=== PATIENT | female | born 1950 | race Hispanic/Latino ===

== ENCOUNTER 2017-04-08 11:24 | Day surgery (SDC) | payer MEDICARE ==
[~2017-04-08 11:24] MED LIST: RINGERS SOLUTION,LACTATED 1,000 ML IV PRN; ROPIVACAINE HCL/PF 40 MG in NORMAL SALINE 16 ML IJ PRN; ceFAZolin SODIUM 1 GM VIAL IV PRN
--- OUTSIDE RECORDS SUMMARY | 2017-04-08 11:28 | XMS REPORT | Continuity of Care Document ---
:1950 Author Organization [facility] ([facility]) Address [address] [place] [address] Phone [phone] Care Team Providers Name Role Phone Unavailable Primary Care Provider Unavailable Source Comments This disclosure is being made pursuant to the Care Everywhere program, applicable federal and state laws, and may not contain all informaitonavailable regarding this patient.[facility] ([facility]) Active Allergies and Adverse Reactions Not on File Current Medications Not on file Active Problems Not on file Social History Tobacco Use Types Packs/Day Years Used Date Never Assessed Plan of Care Health Maintenance Due Date Last Done Comments HCV Screening 1950 Hepatitis B Vaccine (1 of 3 - Primary Series) 1950 Tdap Vaccine 1962 Lipid Disorder Screening 1969 Td Vaccine 1969 Cervical Cancer Screening 1981 Mammogram 1991 Colonoscopy 10/27/2001 Zoster Vaccine 2011 Influenza Vaccine: Seasonal (#1) 06/04/2016 Osteoporosis Screening (DXA Bone Density) 2016 Pneumococcal Vaccine (1 of 2 - PCV13) 2016 Results from Last 3 Months Not on file
[2017-04-08] MEDS ORDERED: BUPIVACAINE HCL/EPINEPHRINE 10 ML VIAL IJ ONE (13:40)
--- NOTE | 2017-04-08 14:24 | OR ---
Operative Report - Dictated Report Narrative: Date: 04/08/2017 Physician: Edson Garcia M.D. Clinical Unit Coordinator: José Antonio Dumont PA-C Preoperative diagnosis: Right Knee medial meniscus tear, Rajput's cyst Postoperative diagnosis: Right Knee medial meniscus tear , Rajput's cyst, chondromalacia medial femoral condyle, anterior medial plica Procedure: Right knee arthroscopy with partial medial meniscectomy, chondroplasty medial femoral condyle, excision of anterior medial plica, aspiration of Rajput cyst Anesthesia: MAC Plus local Complications: None Estimated blood loss: Minimal Tourniquet time: None Specimens: None Retained implants: None Drains: None Indications: Mrs. Roa Is a 66 year-old female who has been followed in my clinic with complaints of knee pain consistent with suspected medial joint as well as Rajput' s cyst pathology. Physical exam and diagnostic imaging were consistent with these complaints and concern for Rajput cyst and medial meniscus pathology. Conservative measures have failed including, but not limited to, passage of time , activity modification, medications, and injections. The risks, benefits, and alternatives were discussed in clinic. The risks being , bleeding, infection, blood clots, nerve, tendon, ligament, blood vessel injury, persistent pain, arthrosis, need for additional procedures, and persistent symptoms. Consent was obtained in the clinic. Procedure: After marking the correct extremity in the preoperative holding area, a timeout was performed in the operating room. IV antibiotics consisting of Ancef were administered prior to the procedure. A well-padded tourniquet was applied to the operative upper thigh. The leg was prepped and draped in a standard sterile fashion. 0.5% Marcaine with epinephrine was infused into the projected portal sites as well as the intra-articular space. A raymundo incision was made for inferior lateral portal. A blunt trocar and cannula was introduced into the knee. The suprapatellar pouch revealed no pathology. The medial patella facet showed grade 2 change. The lateral patella facet showed grade 1 change. The trochlea showed grade 1 change. The medial gutter revealed a large abrading anterior medial plica. The medial joint space was then entered utilizing a lateral post and valgus stress. A spinal needle was utilized for guidance into placement of an anterior medial portal. This was placed just superior to the medial meniscus ensuring that we could reach the posterior aspect of the medial joint space. A raymundo incision was made in the site, and the probe was introduced to the knee. The medial joint space was examined, and the medial femoral condyle showed grade 3 change with a loose chondral edge. The medial tibial plateau showed grade 2 change. The medial meniscus had a complex tear of the posterior one half. The notch was then examined, and the ACL was noted to be intact. The PCL was noted to be intact. The lateral joint space was then examined using a varus force in the figure 4 position. Lateral femoral condyle showed no significant arthrosis. Lateral tibial plateau showed no significant arthrosis. The lateral meniscus showed had some calcification but no romeo tear. The lateral gutter showed no pathology. Having identified the surgical pathology, a series of biters and naomi were utilized in order to debride the posterior one half of the medial meniscus down to approximately 50% of its depth. The medial femoral condyle as well as anterior medial plica were also debrided down to stable margins. Once it was felt that we adequately addressed the pathology, the knee was thoroughly irrigated. The fluid was evacuated ensuring that we have removed all meniscal, chondral, and any other loose bodies. A final evaluation of the joint showed no additional pathology. The fluid was then evacuated of the knee, and the trocar and camera were removed from the joint. The wounds were closed with interrupted nylon after placing 20 mL of 0.2% ropivacaine into the joint. The Rajput's cyst was aspirated from a posterior medial aspiration site using a spinal needle. 8 mL of thick strawberry colored fluid was obtained in the overall size of the popliteal cyst was decreased. Dressings consisting of Xeroform, 4 x 4, ABD, soft roll, and an Phoenix were applied. All sponge, needle, blade, and instrument counts were correct prior to closing the wounds. The patient was awoken and transferred to the postanesthesia care unit in stable condition.
[2017-04-08 15:32] VITALS: BP 145/70
== END 2017-04-08 11:25 | disposition home or self-care (01) ==
LOC: AMB 11:24
PROVIDERS: ATTEND Orthopaedic Surgery
PROC: 0Y9F3ZX Drainage of Right Knee Region, Percutaneous Approach, Diagnostic (ICD-10-PCS; 2017-04-08)
PROC: 0SBC4ZZ Excision of Right Knee Joint, Percutaneous Endoscopic Approach (ICD-10-PCS; principal; 2017-04-08 15:00)
DX: M23.203 Derangement of unspecified medial meniscus due to old tear or injury, right knee (principal); M94.261 Chondromalacia, right knee; M71.21 Synovial cyst of popliteal space [Baker], right knee; I10 Essential (primary) hypertension; E78.5 Hyperlipidemia, unspecified; K21.9 Gastro-esophageal reflux disease without esophagitis; Z68.26 Body mass index [BMI] 26.0-26.9, adult

== ENCOUNTER 2017-09-27 08:59 | Inpatient (IN) | payer MEDICARE ==
[2017-09-27] MEDS ORDERED: ONDANSETRON HCL/PF 2 MG/ML VIAL IV PRN (09:15)
[2017-09-27] MEDS ORDERED: KETOROLAC TROMETHAMINE 30 MG/ML VIAL IV PRN (09:16)
[2017-09-27] MEDS ORDERED: ACETAMINOPHEN 500 MG TABLET PO PRN (09:17)
[2017-09-27 09:35] LABS: Hematocrit 41.6 % (37.0-47.0); Hemoglobin 14.7 gm/dL (12.5-16.0); Mean Cell Volume 85.8 fl (78-100); Mean Corpuscular Hemoglobin 30.3 pg (27-31); Mean Corpuscular Hgb Conc 35.3 g/dl (32-36); Mean Platelet Volume 9.1 fl (6.0-9.5); Neutrophil # 8.7 K/mm3 (1.3-6.0); Neutrophil % 83.9 % (42-75.0); Platelet Count 289 K/mm3 (150-450); Red Blood Count 4.85 M/mm3 (4.2-5.4); Red Cell Distribution Width 11.8 % (11.5-14.0); White Blood Count 10.4 K/mm3 (4.0-10.5)
[2017-09-27 11:09] LABS: Albumin * 3.3 gm/dl (3.4-5.0); Anion Gap 14.3 mmol/L (6.8-13.8); BUN/Creatinine Ratio 11.4 (9.0-21.6); Bilirubin, Total 0.4 mg/dL (0.0-1.1); CRP 7.3 mg/dL (0.0-0.9); Ca. Corrected For Albumin 9.8 mg/dL (8.4-10.2); Calcium * 9.6 mg/dL (7.9-10.9); Carbon Dioxide 24.1 mmol/L (24-32.6); Potassium 3.4 mmol/L (3.4-4.6); Total Protein 7.7 gm/dL (6.2-8.2)
[2017-09-27] MEDS: PIPERACILLIN SODIUM/TAZOBACTAM 3.375 GM in DEXTROSE 5 % IN WATER 100 ML IV SCH ×4 (11:20→19:13)
[2017-09-27] MEDS: SACCHAROMYCES BOULARDII 250 MG CAPSULE PO SCH ×2 (11:21→20:31)
[2017-09-27] MEDS ORDERED: FLU VACC QS2017-18(6MOS UP)/PF 60 MCG/0.5 ML SYRINGE IM ONE (12:00)
--- NOTE | 2017-09-27 14:37 | HP ---
Chief Complaint - Chief Complaint Date of Service: 09/27/17 Time of Service: 09:00 Chief Complaint: Abdominal Pain History of Present Illness: Jeni is a 66 yo female with active diverticulitis that followed up to clinic today. She was diagnosed with diverticulitis and possible colovaginal fistula by CT 4 days ago. She was started on flagyl/cipro and set up with outpatient follow up with me and also with surgery in regards to the possible fistula. She was contacted two days later and reported feeling better, however on the third day she began feeling worse and today reports is the worst that she has felt. She has not been eating and reports feeling fevered. Max temp at home was 99.4. She continues to have lower left quadrant abdominal pain. She has been taking all antibiotics as prescribed. - Patient's Past Medical History Patient History - Medical: Anxiety, Depression, Fibromyalgia, GERD, Seizures, Other Patient History - Cardiac/Respiratory: Hypertension, Hyperlipidemia, Pneumonia Patient History - Cancer: No Hx of Cancer Patient History - Surgical Procedures: Cholecystectomy, Colonoscopy, D & C, Hysterectomy, Tubal Ligation Patient History - Other: None LMP (females 10-50): Menopausal - Family History Mother Family History - Medical: No pertinent hx, Other Family History - Cardiac/Respiratory: Coronary Heart Disease, Hypertension, Hyperlipidemia, Other Family History - Cancer: No pertinent family hx Father Family History - Medical: Arthritis, Glaucoma Family History - Cardiac/Respiratory: No pertinent hx Family History - Cancer: Prostate - Social History Living Situations: spouse Abuse History: No History of abuse Psych History: Hx of Anxiety, Hx of Depression Smoking Status: Never smoker Have you smoked in the past 12 months: No Do you dip or chew tobacco: No Patient requests Smoking Cessation Consult: No Initiate information on Smoking Cessation: No Alcohol Use: none Drug Use: none - Immunizations Immunizations Up to Date: Yes Hx Pneumococcal Vaccination: No History of Influenza Vaccine: No Review Of Systems (GEN) - Review of Systems Generalized/Overall Review: Present: Weakness, Chills, Diaphoresis EENTM: Present: No Symptoms Reported Respiratory: Present: No Symptoms Reported Cardiac: Present: No Symptoms Reported Abdominal: Present: Nausea, Abdominal Pain Genitourinary: Present: Other - ayala vaginal discharge Musculoskeletal: Present: No Symptoms Reported Neurological: Present: No Symptoms Reported Skin: Present: No Symptoms Reported Endocrine: Present: No Symptoms Reported Immunizations: IMMUNIZATION HX Immunizations Up to Date Yes History of Influenza Vaccine No Hx Pneumococcal Vaccination No Allergies/Adverse Reactions: Allergies Allergy/AdvReac Type Severity Reaction Status Date / Time Iodinated Contrast- Oral and Allergy Mild Hives Verified 09/27/17 09:57 IV Dye [Iodinated Contrast Media - IV Dye] fexofenadine HCl AdvReac Intermediate SUICIDAL Verified 09/27/17 09:57 [From Grace] THOUGHTS duloxetine HCl AdvReac Mild EYE SIGHT Verified 09/27/17 09:57 [From Cymbalta] GOES BAD metoclopramide HCl AdvReac Mild GI UPSET Verified 09/27/17 09:57 [From Reglan] NSAIDS (Non-Steroidal AdvReac Mild GI UPSET Verified 09/27/17 09:57 Anti-Inflamma pregabalin [From Lyrica] AdvReac Mild BODY ACHES Verified 09/27/17 09:57 promethazine HCl AdvReac Mild GI UPSET Verified 09/27/17 09:57 [From Phenergan] Home Medications: HOME MEDICATIONS Omeprazole Magnesium [Prilosec Otc] 20 mg PO DAILY 01/09/16 [Last Taken 06:00] Acetaminophen [Tylenol] 325 - 650 mg PO Q4H PRN 03/15/17 [Last Taken Unknown] Ibuprofen [Motrin] 400 mg PO Q6H PRN 03/15/17 [Last Taken Unknown] Ciprofloxacin HCl 500 mg PO BID 09/27/17 [Last Taken 09/27/17 06:00] metroNIDAZOLE [Flagyl] 500 mg PO TID 09/27/17 [Last Taken 09/27/17 06:00] Exam - Exam Vital Signs: Vital Signs - Last Taken Temp 37.1 C 09/27/17 09:04 Pulse 96 09/27/17 09:04 Resp 16 09/27/17 09:04 BP 118/71 09/27/17 09:04 Pulse Ox 96 09/27/17 09:04 Constitutional: Present: Alert, Oriented x3, Cooperative ENT Exam: Present: hearing grossly normal Eye Exam: bilateral eye: normal inspection Respiratory: Present: lungs clear, normal breath sounds Cardiovascular/Chest: Present: regular rate, rhythm, no murmur Abdomen: Present: Normal bowel sounds, soft, nondistended, tender - LLQ Extremity: Present: normal inspection Skin Exam: Present: normal color, warm/dry, no cyanosis Neurologic: Present: normal mood/affect, oriented x 3 Appearance: Present: appropriate appearance, appropriate insight Eye contact: Present: cooperative, good eye contact, normal speech Thoughts: Present: normal thought pattern, no apparent hallucination Diagnostic Studies: Abnormal Lab Results 09/27/17 09/27/17 09/27/17 Range/Units 09:30 09:30 09:30 Neutrophils % 83.9 H (42-75.0) % Lymphocytes % 8.4 L (20-51) % Neutrophils # 8.7 H (1.3-6.0) K/mm3 Lymphocytes # 0.9 L (1.5-3.5) k/mm3 ESR 41 H (0-15) mm/hr Anion Gap 14.3 H (6.8-13.8) mmol/L Random Glucose 118 H (70-110) mg/dL C-Reactive Prot, Quant 7.3 H (0.0-0.9) mg/dL Albumin 3.3 L (3.4-5.0) gm/dl Laboratory Results WBC 10.4 K/mm3 (4.0-10.5) 09/27/17 09:30 RBC 4.85 M/mm3 (4.2-5.4) 09/27/17 09:30 Hgb 14.7 gm/dL (12.5-16.0) 09/27/17 09:30 Hct 41.6 % (37.0-47.0) 09/27/17 09:30 MCV 85.8 fl (78-100) 09/27/17 09:30 MCH 30.3 pg (27-31) 09/27/17 09:30 MCHC 35.3 g/dl (32-36) 09/27/17 09:30 RDW 11.8 % (11.5-14.0) 09/27/17 09:30 Plt Count 289 K/mm3 (150-450) 09/27/17 09:30 MPV 9.1 fl (6.0-9.5) 09/27/17 09:30 Immature Gran % (Auto) 0.30 % (0.001-0.429) 09/27/17 09:30 Immature Gran # (Auto) 0.03 K/mm3 (0.000-0.0310) 09/27/17 09:30 Neutrophils % 83.9 % (42-75.0) H 09/27/17 09:30 Lymphocytes % 8.4 % (20-51) L 09/27/17 09:30 Monocytes % 6.8 % (0.0-9) 09/27/17 09:30 Eosinophils % 0.3 % (0.0-3.0) 09/27/17 09:30 Basophils % 0.3 % (0.0-1.0) 09/27/17 09:30 Nucleated RBC % 0.0 k/mm3 (0-1) 09/27/17 09:30 Neutrophils # 8.7 K/mm3 (1.3-6.0) H 09/27/17 09:30 Lymphocytes # 0.9 k/mm3 (1.5-3.5) L 09/27/17 09:30 Monocytes # 0.7 k/mm3 (0.0-1.0) 09/27/17 09:30 Eosinophils # 0.0 k/mm3 (0.0-0.7) 09/27/17 09:30 Absolute Basophils 0.0 k/mm3 (0.0-0.1) 09/27/17 09:30 ESR 41 mm/hr (0-15) H 09/27/17 09:30 Sodium 135 mmol/L (132-142) 09/27/17 09:30 Plasma Sodium 135 mmol/L (130-142) 09/27/17 09:30 Potassium 3.4 mmol/L (3.4-4.6) 09/27/17 09:30 Chloride 100 mmol/L (97-106) 09/27/17 09:30 Carbon Dioxide 24.1 mmol/L (24-32.6) 09/27/17 09:30 Anion Gap 14.3 mmol/L (6.8-13.8) H 09/27/17 09:30 BUN 9 mg/dL (3-23) 09/27/17 09:30 Creatinine 0.79 mg/dL (0.4-1.4) 09/27/17 09:30 Est GFR (Non-Af Amer) 78 mL/min (60-130) 09/27/17 09:30 BUN/Creatinine Ratio 11.4 (9.0-21.6) 09/27/17 09:30 Random Glucose 118 mg/dL (70-110) H 09/27/17 09:30 Calcium 9.6 mg/dL (7.9-10.9) 09/27/17 09:30 Calcium Adj for Albumin 9.8 mg/dL (8.4-10.2) 09/27/17 09:30 Total Bilirubin 0.4 mg/dL (0.0-1.1) 09/27/17 09:30 AST 25 U/L (0-48) 09/27/17 09:30 ALT 19 U/L (19-67) 09/27/17 09:30 Alkaline Phosphatase 99 U/L (50-170) 09/27/17 09:30 C-Reactive Prot, Quant 7.3 mg/dL (0.0-0.9) H 09/27/17 09:30 Total Protein 7.7 gm/dL (6.2-8.2) 09/27/17 09:30 Albumin 3.3 gm/dl (3.4-5.0) L 09/27/17 09:30 Assessment/Plan - Narrative Narrative: "Juana" is a 66yo female with diverticulitis. She has had 4 days of oral antibiotics and symptoms are now worsening. Will admit to acute inpatient for failed outpatient treatment of diverticulitis. Will treat with zosyn. Will obtain stool and blood culture. Will check CBC. Will give clear liquids and clear ensure. Zofran and toradol for prn nausea and pain control. Her diverticulitis is complicated with possible colovaginal fistula. With failed outpatient treatment will need 7 days of IV zosyn. Following treatment with antibiotics will need to follow up with surgery in regards to repair of colon/ fistula. If she is not improving clinically may need to consult surgery for inpatient management. - Assessment/Plan (1) Diverticulitis large intestine Problem: Acute Qualifiers: Diverticulitis bleeding: without bleeding Diverticulitis complication: unspecified complication status Qualified Code(s): K57.32 - Diverticulitis of large intestine without perforation or abscess without bleeding (2) Colovaginal fistula Problem: Acute
[2017-09-28] MEDS: PIPERACILLIN SODIUM/TAZOBACTAM 3.375 GM in DEXTROSE 5 % IN WATER 100 ML IV SCH ×6 (03:15→19:01)
[2017-09-28] MEDS ORDERED: OMEPRAZOLE 20 MG CAPSULE.SA PO SCH (05:00)
[2017-09-28] MEDS: PANTOPRAZOLE SODIUM 20 MG TABLET.DR PO SCH (07:56)
[2017-09-28] MEDS: SACCHAROMYCES BOULARDII 250 MG CAPSULE PO SCH ×2 (08:00→20:24)
[2017-09-28 11:11] LABS: Hematocrit 42.9 % (37.0-47.0); Hemoglobin 14.9 gm/dL (12.5-16.0); Mean Corpuscular Hemoglobin 29.9 pg (27-31); Mean Corpuscular Hgb Conc 34.7 g/dl (32-36); Mean Platelet Volume 8.9 fl (6.0-9.5); Neutrophil # 4.6 K/mm3 (1.3-6.0); Neutrophil % 61.9 % (42-75.0); Platelet Count 315 K/mm3 (150-450); Red Blood Count 4.99 M/mm3 (4.2-5.4); Red Cell Distribution Width 11.9 % (11.5-14.0); White Blood Count 7.4 K/mm3 (4.0-10.5)
[2017-09-28 11:22] LABS: Anion Gap 12.6 mmol/L (6.8-13.8); BUN/Creatinine Ratio 12.3 (9.0-21.6); Bilirubin, Total 0.5 mg/dL (0.0-1.1); CRP 13.9 mg/dL (0.0-0.9); Ca. Corrected For Albumin 9.8 mg/dL (8.4-10.2); Calcium * 9.3 mg/dL (7.9-10.9); Carbon Dioxide 26.7 mmol/L (24-32.6); Potassium 3.3 mmol/L (3.4-4.6); Total Protein 7.5 gm/dL (6.2-8.2)
--- NOTE | 2017-09-28 11:39 | PN ---
Subjective - Date and Time Seen Date: 09/28/17 Time: 11:34 Subjective Narrative: Reports LUQ pain and vaginal pain and pressure when standing. She feels bloating. No nausea today. Overall is feeling better. She has been up walking in the [place] frequently. She has passed soft mucus mixed stool. No fever. Objective - Vitals Vitals: Last Vital Signs Temp 36.7 C 09/28/17 08:00 Pulse 90 09/28/17 08:00 Resp 18 09/28/17 08:00 BP 115/69 09/28/17 08:00 Pulse Ox 98 09/28/17 08:00 - Abnormal Lab Findings Abnormal Lab Findings: Abnormal Lab Results 09/28/17 09/28/17 Range/Units 11:03 11:03 Monocytes % 11.4 H (0.0-9) % Potassium 3.3 L (3.4-4.6) mmol/L ALT 17 L (19-67) U/L C-Reactive Prot, Quant 13.9 H (0.0-0.9) mg/dL Albumin 3.0 L (3.4-5.0) gm/dl - Exam Constitutional: Present: Alert, Oriented x3, Cooperative ENT Exam: Present: hearing grossly normal Respiratory: Present: lungs clear, normal breath sounds Cardiovascular/Chest: Present: regular rate, rhythm, no murmur Abdomen: Present: Normal bowel sounds, soft, tender - mild tenderness to LUQ and lower quadrants Skin Exam: Present: normal color, warm/dry, no cyanosis Assessment/Plan Plan Narrative: Jeni is a 66yo female with: 1) Complicated diverticulitis with colovaginal fistula - She failed outpatient treatment with cipro/flagyl. Will treat with IV zosyn for 7 days inpatient. Will monitor cbc and crp. Will repeat abdominal pelvis CT in 2 days to reaccess and then discuss with surgery in regards to repair. She appears to be improving today compared to yesterday. - Problems/Diagnosis (1) Diverticulitis large intestine Problem: Acute Qualifiers: Diverticulitis bleeding: without bleeding Diverticulitis complication: unspecified complication status Qualified Code(s): K57.32 - Diverticulitis of large intestine without perforation or abscess without bleeding (2) Colovaginal fistula Problem: Acute
[2017-09-29] MEDS: PIPERACILLIN SODIUM/TAZOBACTAM 3.375 GM in DEXTROSE 5 % IN WATER 100 ML IV SCH ×6 (02:31→18:36)
[2017-09-29] MEDS: PANTOPRAZOLE SODIUM 20 MG TABLET.DR PO SCH (07:07)
[2017-09-29] MEDS: SACCHAROMYCES BOULARDII 250 MG CAPSULE PO SCH ×2 (08:48→20:54)
--- NOTE | 2017-09-29 09:05 | PN ---
Subjective - Date and Time Seen Date: 09/29/17 Time: 08:59 Subjective Narrative: Pt. feeling much better. Having large BM's, but still feels full even on just clear liquids. Denies any stool discharge from vagina. No F/C or SOB. Objective - Review of Systems Generalized/Overall Review: Reports: Weakness. Denies: Chills, Fever, Malaise EENTM: Reports: No Symptoms Reported Respiratory: Reports: Cough Cardiac: Reports: No Symptoms Reported Abdominal: Reports: Nausea, Abdominal Pain - mild, Diarrhea Genitourinary Symptoms: Reports: Frequency. Denies: Burning, Urgency Musculoskeletal Complaints: Reports: No Symptoms Reported Neurological: Reports: No Symptoms Reported Skin: Reports: No Symptoms Reported Endocrine: Reports: No Symptoms Reported - Vitals Vitals: Last Vital Signs Temp 36.7 C 09/29/17 06:45 Pulse 81 09/29/17 06:45 Resp 18 09/29/17 06:45 BP 111/73 09/29/17 06:45 Pulse Ox 98 09/29/17 06:45 - Abnormal Lab Findings Abnormal Lab Findings: Abnormal Lab Results 09/28/17 09/28/17 Range/Units 11:03 11:03 Monocytes % 11.4 H (0.0-9) % Potassium 3.3 L (3.4-4.6) mmol/L ALT 17 L (19-67) U/L C-Reactive Prot, Quant 13.9 H (0.0-0.9) mg/dL Albumin 3.0 L (3.4-5.0) gm/dl - Exam Constitutional: Present: Alert, Oriented x3, Cooperative, No distress ENT Exam: Present: hearing grossly normal Neck: Present: supple Respiratory: Present: no respiratory distress, no accessory muscle use, wheezing Cardiovascular/Chest: Present: regular rate, rhythm, no murmur Abdomen: Present: Normal bowel sounds, soft, nondistended, tender - LLQ but no rebound or guarding. Absent: guarding, rebound tenderness, suprapubic tenderness, negative Blackwood sign Extremity: Present: no calf tenderness. Absent: lower extremity edema Skin Exam: Present: normal color Neurologic: Present: normal mood/affect, oriented x 3 Appearance: Present: appropriate appearance, appropriate insight, neat Eye contact: Present: cooperative, good eye contact, normal speech Thoughts: Present: normal thought pattern, no apparent hallucination Assessment/Plan - Problems/Diagnosis (1) Wheezing Problem: Acute Narrative: will add neb tx prn cough/wheezing today. communicated this to patient. (2) Colovaginal fistula Problem: Acute Narrative: no stool, could possibly resolve as diverticulitis improves. ? repeat CT in am vs. GS consult vs. continue to just watch and tx diverticulitis. (3) Diverticulitis large intestine Problem: Acute Qualifiers: Diverticulitis bleeding: without bleeding Diverticulitis complication: unspecified complication status Qualified Code(s): K57.32 - Diverticulitis of large intestine without perforation or abscess without bleeding Narrative: improving - continue IV abx and clear liquid diet. (4) Discharge planning issues Problem: Acute Narrative: can be discharged home as sx improve, concern for fistula diminishes from a surgery standpoint and she is able to transition to PO meds and advance her diet.
[2017-09-30] MEDS: PIPERACILLIN SODIUM/TAZOBACTAM 3.375 GM in DEXTROSE 5 % IN WATER 100 ML IV SCH ×6 (02:59→20:17)
[2017-09-30] MEDS: PANTOPRAZOLE SODIUM 20 MG TABLET.DR PO SCH (07:07)
[2017-09-30] MEDS: SACCHAROMYCES BOULARDII 250 MG CAPSULE PO SCH ×2 (09:18→20:18)
--- NOTE | 2017-09-30 11:49 | PN ---
Subjective - Date and Time Seen Date: 09/30/17 Time: 11:45 Subjective Narrative: States BM's are getting more "normal". Abdominal discomfort and fullness is better, but still noticeable when upright. No other complaints. She does feel like her rectum might prolapse when having a BM though. Objective - Review of Systems Generalized/Overall Review: Reports: No Symptoms Reported EENTM: Reports: No Symptoms Reported Respiratory: Reports: No Symptoms Reported Cardiac: Reports: No Symptoms Reported Abdominal: Reports: Nausea, Abdominal Pain. Denies: Vomiting, Constipation, Melena, Bright blood from rectum Genitourinary Symptoms: Reports: No Symptoms Reported, Other - no stool from vagina Musculoskeletal Complaints: Reports: No Symptoms Reported Neurological: Reports: No Symptoms Reported Skin: Reports: No Symptoms Reported Endocrine: Reports: No Symptoms Reported - Vitals Vitals: Last Vital Signs Temp 36.7 C 09/30/17 08:00 Pulse 91 09/30/17 08:00 Resp 18 09/30/17 08:00 BP 124/80 09/30/17 08:00 Pulse Ox 98 09/30/17 08:00 - Exam Constitutional: Present: Alert, Oriented x3, Cooperative, No distress, Looks Younger than stated age ENT Exam: Present: hearing grossly normal Neck: Present: supple Respiratory: Present: lungs clear, normal breath sounds, no respiratory distress , no accessory muscle use Cardiovascular/Chest: Present: regular rate, rhythm, no murmur Abdomen: Present: Normal bowel sounds, soft, tender - LLQ but soft.. Absent: guarding, rigidity, rebound tenderness /Rectal: Present: Exam deferred Extremity: Present: no calf tenderness. Absent: lower extremity edema Skin Exam: Present: normal color Neurologic: Present: normal mood/affect, oriented x 3 Appearance: Present: appropriate appearance, appropriate insight, neat Eye contact: Present: cooperative, good eye contact, normal speech Thoughts: Present: normal thought pattern, no apparent hallucination Assessment/Plan - Problems/Diagnosis (1) Wheezing Problem: Acute Narrative: improved, continue nebs. (2) Colovaginal fistula Problem: Acute Narrative: does not appear to be progressing. follow for now. Pt. states repeat CT scheduled for tomorrow. (3) Diverticulitis large intestine Problem: Acute Qualifiers: Diverticulitis bleeding: without bleeding Diverticulitis complication: unspecified complication status Qualified Code(s): K57.32 - Diverticulitis of large intestine without perforation or abscess without bleeding Narrative: improving. continue IV abx due to failed outpt. tx. (4) Discharge planning issues Problem: Acute Narrative: anticipate discharge after IV doses on This .
[2017-10-01] MEDS: PIPERACILLIN SODIUM/TAZOBACTAM 3.375 GM in DEXTROSE 5 % IN WATER 100 ML IV SCH ×2 (03:41)
[2017-10-01] MEDS: PANTOPRAZOLE SODIUM 20 MG TABLET.DR PO SCH (07:03)
[2017-10-01] MEDS: SACCHAROMYCES BOULARDII 250 MG CAPSULE PO SCH ×2 (08:55→20:41)
[2017-10-01] MEDS: PIPERACILLIN SODIUM/TAZOBACTAM 3.375 GM in NORMAL SALINE 100 ML IV SCH ×2 (10:27→19:36)
--- NOTE | 2017-10-01 16:46 | PN ---
Subjective - Date and Time Seen Date: 10/01/17 Time: 16:33 Subjective Narrative: Jeni reports feeling better. She feels vaginal pressure, but denies pain, nausea , or fever. She is tolerating clear diet. She reports getting her appetite back. Objective - Vitals Vitals: Last Vital Signs Temp 36.7 C 10/01/17 15:00 Pulse 82 10/01/17 15:00 Resp 18 10/01/17 15:00 BP 189/61 10/01/17 15:00 Pulse Ox 98 10/01/17 15:00 - Exam Constitutional: Present: Alert, Oriented x3, Cooperative ENT Exam: Present: hearing grossly normal Respiratory: Present: chest non-tender, lungs clear, normal breath sounds Cardiovascular/Chest: Present: regular rate, rhythm, no murmur Abdomen: Present: Normal bowel sounds, soft, nontender, nondistended Skin Exam: Present: normal color, warm/dry, no cyanosis Assessment/Plan Plan Narrative: Juana is doing better. Will repeat an abdominal CT tomorrow to reassess colovaginal fistula and diverticulitis. Will discuss with general surgery following imaging. Clinically she is getting better. Plan to continue antibiotics for a total of 7 days. - Problems/Diagnosis (1) Diverticulitis large intestine Problem: Acute Qualifiers: Diverticulitis bleeding: without bleeding Diverticulitis complication: unspecified complication status Qualified Code(s): K57.32 - Diverticulitis of large intestine without perforation or abscess without bleeding (2) Colovaginal fistula Problem: Acute
[2017-10-01] MEDS ORDERED: predniSONE 20 MG TABLET PO ONE (22:00)
[2017-10-02] MEDS: PIPERACILLIN SODIUM/TAZOBACTAM 3.375 GM in NORMAL SALINE 100 ML IV SCH ×3 (02:44→18:51)
[2017-10-02 06:06] LABS: Hemoglobin 13.8 gm/dL (12.5-16.0); Mean Cell Volume 86.6 fl (78-100); Mean Corpuscular Hemoglobin 29.9 pg (27-31); Mean Corpuscular Hgb Conc 34.5 g/dl (32-36); Mean Platelet Volume 8.8 fl (6.0-9.5); Neutrophil # 2.4 K/mm3 (1.3-6.0); Platelet Count 376 K/mm3 (150-450); Red Blood Count 4.62 M/mm3 (4.2-5.4); Red Cell Distribution Width 11.9 % (11.5-14.0); White Blood Count 3.3 K/mm3 (4.0-10.5)
[2017-10-02 06:26] LABS: Anion Gap 9.6 mmol/L (6.8-13.8); BUN/Creatinine Ratio 5.5 (9.0-21.6); Bilirubin, Total 0.3 mg/dL (0.0-1.1); Calcium * 9.5 mg/dL (7.9-10.9); Potassium 2.6 mmol/L (3.4-4.6); Total Protein 7.2 gm/dL (6.2-8.2)
[2017-10-02] MEDS ORDERED: DIATRIZOATE MEGLUMINE, SODIUM 30 ML BTL PO ONE (06:43)
[2017-10-02] MEDS ORDERED: predniSONE 20 MG TABLET PO ONE ×2 (06:58→09:00)
[2017-10-02] MEDS ORDERED: diphenhydrAMINE HCL 25 MG CAPSULE PO ONE ×2 (06:58→09:00)
[2017-10-02] MEDS ORDERED: POTASSIUM CHLORIDE 20 MEQ TABLET.SA PO ONE ×2 (07:15→12:30)
[2017-10-02] MEDS: POTASSIUM CHLORIDE IV SCH ×4 (07:45→13:24)
[2017-10-02] MEDS: WATER FOR INJECTION STERILE IV SCH ×4 (07:45→13:24)
[2017-10-02] MEDS: PANTOPRAZOLE SODIUM 20 MG TABLET.DR PO SCH (07:56)
[2017-10-02] MEDS: SACCHAROMYCES BOULARDII 250 MG CAPSULE PO SCH ×2 (08:01→21:02)
[2017-10-03] MEDS: PIPERACILLIN SODIUM/TAZOBACTAM 3.375 GM in NORMAL SALINE 100 ML IV SCH ×3 (02:11→18:55)
[2017-10-03] MEDS: PANTOPRAZOLE SODIUM 20 MG TABLET.DR PO SCH (06:46)
--- NOTE | 2017-10-03 08:01 | PN ---
Subjective - Date and Time Seen Date: 10/02/17 Time: 16:45 Subjective Narrative: Jeni reports feeling well. No pain, fever, chills, nausea, or vomiting. No vaginal discharge. Objective - Vitals Vitals: Last Vital Signs Selected Entries 10/02/17 11:01 Temperature 37.2 C Pulse Rate 94 Respiratory 14 Rate Blood Pressure 142/86 O2 Sat by Pulse 97 Oximetry Oxygen Delivery Room Air Method - Exam Constitutional: Present: Alert, Oriented x3, Cooperative ENT Exam: Present: hearing grossly normal Respiratory: Present: lungs clear, normal breath sounds Cardiovascular/Chest: Present: regular rate, rhythm, no murmur Abdomen: Present: Normal bowel sounds, soft, nontender, nondistended Skin Exam: Present: normal color, warm/dry, no cyanosis Assessment/Plan Plan Narrative: Repeat CT today looked improved. Will continue zosyn for 7 full days. Will advance diet to low fiber diet tomorrow. Will plan to continue oral antibiotics for another two weeks after discharge in the next 1-2 days. Will have her follow up with surgery as outpatient. Discussed with Dr. Constantino of general surgery who recommends surgery at [facility] as this diverticulitis is low in the pelvis and the patient does not want a colostomy. - Problems/Diagnosis (1) Diverticulitis large intestine Problem: Acute Qualifiers: Diverticulitis bleeding: without bleeding Diverticulitis complication: unspecified complication status Qualified Code(s): K57.32 - Diverticulitis of large intestine without perforation or abscess without bleeding (2) Colovaginal fistula Problem: Acute
[2017-10-03 08:27] LABS: Albumin * 3.3 gm/dl (3.4-5.0); Anion Gap 12.5 mmol/L (6.8-13.8); BUN/Creatinine Ratio 5.7 (9.0-21.6); Bilirubin, Total 0.4 mg/dL (0.0-1.1); Calcium * 9.8 mg/dL (7.9-10.9); Carbon Dioxide 29.1 mmol/L (24-32.6); Potassium 2.6 mmol/L (3.4-4.6); Total Protein 7.4 gm/dL (6.2-8.2)
[2017-10-03 08:35] LABS: Hematocrit 42.3 % (37.0-47.0); Hemoglobin 14.4 gm/dL (12.5-16.0); Mean Cell Volume 87.6 fl (78-100); Mean Corpuscular Hemoglobin 29.8 pg (27-31); Neutrophil # 3.7 K/mm3 (1.3-6.0); Neutrophil % 51.7 % (42-75.0); Platelet Count 421 K/mm3 (150-450); Red Blood Count 4.83 M/mm3 (4.2-5.4); Red Cell Distribution Width 12.2 % (11.5-14.0); White Blood Count 7.1 K/mm3 (4.0-10.5)
[2017-10-03] MEDS: SACCHAROMYCES BOULARDII 250 MG CAPSULE PO SCH ×2 (08:47→20:39)
[2017-10-03] MEDS: POTASSIUM CHLORIDE 20 MEQ TABLET.SA PO SCH ×3 (08:48→16:34)
[2017-10-03] MEDS ORDERED: POTASSIUM CHLORIDE 20 MEQ TABLET.SA PO SCH (09:00)
--- NOTE | 2017-10-03 16:40 | PN ---
Subjective - Date and Time Seen Date: 10/03/17 Time: 16:36 Subjective Narrative: Reports tolerating low fiber diet. No pain, fever, chills, nausea, or vomiting. Objective - Vitals Vitals: Last Vital Signs Temp 36.1 C L 10/03/17 14:40 Pulse 88 10/03/17 14:40 Resp 18 10/03/17 14:40 BP 117/66 10/03/17 14:40 Pulse Ox 97 10/03/17 14:40 - Abnormal Lab Findings Abnormal Lab Findings: Abnormal Lab Results 10/03/17 Range/Units 08:09 Sodium 145 H (132-142) mmol/L Plasma Sodium 145 H (130-142) mmol/L Potassium 2.6 L (3.4-4.6) mmol/L BUN/Creatinine Ratio 5.7 L (9.0-21.6) Albumin 3.3 L (3.4-5.0) gm/dl - Exam Constitutional: Present: Alert, Oriented x3, Cooperative ENT Exam: Present: hearing grossly normal Respiratory: Present: lungs clear, normal breath sounds Cardiovascular/Chest: Present: regular rate, rhythm, no murmur Abdomen: Present: Normal bowel sounds, soft, nontender, nondistended Skin Exam: Present: normal color, warm/dry, no cyanosis Appearance: Present: appropriate appearance, appropriate insight Eye contact: Present: cooperative, good eye contact, normal speech Assessment/Plan Plan Narrative: For a full 7 days of zosyn her last dose will be tonight at 2am. Will plan to discharge to home tomorrow on oral antibiotics for two weeks. Will schedule follow up with general surgery to discuss colon resection of diverticula. - Problems/Diagnosis (1) Diverticulitis large intestine Problem: Acute Qualifiers: Diverticulitis bleeding: without bleeding Diverticulitis complication: unspecified complication status Qualified Code(s): K57.32 - Diverticulitis of large intestine without perforation or abscess without bleeding (2) Colovaginal fistula Problem: Acute (3) Hypokalemia Problem: Acute Narrative: Potassium remains low due to liquid diet. Advanced diet to low fiber. Will give potassium chloride 40meq TID with meals and recheck.
[2017-10-03 19:08] LABS: Anion Gap 13.4 mmol/L (6.8-13.8); BUN/Creatinine Ratio 18.7 (9.0-21.6); Calcium * 9.7 mg/dL (7.9-10.9); Carbon Dioxide 27.8 mmol/L (24-32.6); Estimated Creat Clear 67.3; Potassium 4.2 mmol/L (3.4-4.6)
[2017-10-04] MEDS: PIPERACILLIN SODIUM/TAZOBACTAM 3.375 GM in NORMAL SALINE 100 ML IV SCH ×2 (03:00→14:08)
[2017-10-04] MEDS: PANTOPRAZOLE SODIUM 20 MG TABLET.DR PO SCH (07:12)
[2017-10-04 07:39] VITALS: BP 136/77
[2017-10-04 08:23] LABS: Albumin * 3.3 gm/dl (3.4-5.0); Anion Gap 10.4 mmol/L (6.8-13.8); BUN/Creatinine Ratio 24.7 (9.0-21.6); Bilirubin, Total 0.3 mg/dL (0.0-1.1); Calcium * 9.8 mg/dL (7.9-10.9); Carbon Dioxide 29.7 mmol/L (24-32.6); Potassium 4.1 mmol/L (3.4-4.6); Total Protein 7.6 gm/dL (6.2-8.2)
[2017-10-04] MEDS: SACCHAROMYCES BOULARDII 250 MG CAPSULE PO SCH (08:27)
--- NOTE | 2017-10-04 13:01 | DS ---
(1) Diverticulitis large intestine Problem: Acute Qualifiers: Diverticulitis bleeding: without bleeding Diverticulitis complication: unspecified complication status Qualified Code(s): K57.32 - Diverticulitis of large intestine without perforation or abscess without bleeding (2) Colovaginal fistula Problem: Acute (3) Hypokalemia Problem: Acute Description of Stay: Jeni is a 66 yo female admitted for diverticulitis with failed outpatient treatment on cipro/flagyl. There was also CT findings suggesting possible colovaginal fistula. She was admitted, made NPO, and started on zosyn. She improved clinically with resolution of pain and nausea and diet was advanced to low fiber diet. She was treated for a full 7 days of IV zosyn. Will continue on oral antibiotics for 2 additional weeks. Due to the extensiveness of the diverticulitis she is at high risk for reoccurrence. Discussed with Dr. Constantino, General Surgery. He recommended outside referral due to the low, deep location of the diverticulitis and her request to avoid a colostomy, which he would have to do as an interim. She will be referred as an outpatient for surgical consultation. Unclear as to whether she has a colovaginal fistula. CT imaging suggests the possibility, but patient has not had significant vaginal drainage. This will be evaluated by surgery as outpatient. Procedures Performed: none Discharge Disposition: Home self care Disposition: Home self-care Condition: Good Discharge Activity: Activity as tolerated Discharge Diet: Low Fiber - x 2 weeks, then high fiber diet Referrals: Zach Disla DO [Primary Care Provider] - [facility]OUTSIDE [Non Staff Physicians] - ([facility] - Sigmoid Diverticulitis with possible colvaginal fistula, next available) Problem Oriented Discharge Instructions to Patient/Family: Diverticulitis, Easy -to-Read Additional Patient Instructions (free text): Please make TCM appointment, unless detention discharge. Thank you! Evelyn at [phone]. Follow up with 10-11-17 @ 10:45am. Please make a copy of images to a CD for patient to take with her to appointments (2 copies).(done) [facility] will call you with appointment to follow up with them for your Diverticulitis needs. Prescriptions (Any new or edited meds): Levofloxacin [Levaquin] 750 mg PO DAILY #14 tablet metroNIDAZOLE [Flagyl] 500 mg PO TID #42 tablet Saccharomyces Boulardii [Florastor] 250 mg PO BID #60 capsule Complete Home Medications List: Complete Home Medication List: Omeprazole Magnesium [Prilosec Otc] 20 mg PO DAILY 01/09/16 Acetaminophen [Tylenol] 325 - 650 mg PO Q4H PRN 03/15/17 Ibuprofen [Motrin] 400 mg PO Q6H PRN 03/15/17 Levofloxacin [Levaquin] 750 mg PO DAILY #14 tablet 10/04/17 Saccharomyces Boulardii [Florastor] 250 mg PO BID #60 capsule 10/04/17 metroNIDAZOLE [Flagyl] 500 mg PO TID #42 tablet 10/04/17
== END 2017-10-04 15:00 | disposition home or self-care (01) | DRG 392 ==
LOC: MS 08:59
PROVIDERS: ADMIT Family Medicine; ATTEND Family Medicine
DX: K57.32 Diverticulitis of large intestine without perforation or abscess without bleeding (principal); N82.3 Fistula of vagina to large intestine; E87.6 Hypokalemia; K21.9 Gastro-esophageal reflux disease without esophagitis; I10 Essential (primary) hypertension; E78.5 Hyperlipidemia, unspecified; Z23 Encounter for immunization
CPT/HCPCS: 36415; 74177; 80048; 80053; 85025; 85652; 86140; 87040; 87045; 87046; 90686; G0008